=== PATIENT | female | born 1990 | race African-American/Black ===

== ENCOUNTER 2018-09-25 09:57 | Outpatient (CLI) | payer MEDICAID ==
[2018-09-25] MEDS ORDERED: FLUO20CA19 PO (10:20)
[2018-09-25] MEDS ORDERED: TRAZ-137 PO (10:20)
== END 2018-09-25 23:59 | disposition home or self-care (01) ==
LOC: STAR 09:57
PROVIDERS: ATTEND Specialist
DX: Z02.9 Encounter for administrative examinations, unspecified (principal)